=== PATIENT | female | born 1950 | race Hispanic/Latino ===

== ENCOUNTER 2016-11-08 18:14 | Emergency (ER) | payer MEDICARE ==
[2016-11-08 18:14] VITALS: BMI 27.6
[2016-11-08 18:35] VITALS: TEMP 98.9
[2016-11-08] MEDS ORDERED: Morphine 4 mg/ml ISec IM STA (18:39)
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
[2016-11-08] MEDS ORDERED: Lidocaine 1% Inj (20ml) IJ STA (19:10)
[2016-11-08 20:24] VITALS: BP 141/79; PULSE 65; RESP 20; O2SAT 99
--- NOTE | 2016-11-09 13:31 | RAD ---
PROCEDURE: Left Wrist Radiographs. HISTORY: post reduction COMPARISON: None. FINDINGS: BONES: Status post closed reduction previously noted comminuted intra-articular fracture distal left radius. Persistent angulation of the distal fragments. Surrounding soft tissue swelling. 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 IMPRESSION: Status post closed reduction previously noted comminuted intra-articular fracture distal left radius. Persistent angulation of the distal fragments. Surrounding soft tissue swelling. . See above discussion for additional details and findings.
--- NOTE | 2016-11-09 13:33 | RAD ---
PROCEDURE: Left Wrist Radiographs. HISTORY: lt. wrist pain s/p fall COMPARISON: None. FINDINGS: BONES: Comminuted intra-articular fracture distal left radius with palmar/volar angulation of the distal fragments. Surrounding soft tissue swelling. . 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 No dislocation. SOFT TISSUES: Normal. OTHER FINDINGS: None. IMPRESSION: Comminuted intra-articular fracture distal left radius with palmar/volar angulation of the distal fragments
== END 2016-11-08 20:55 | disposition home or self-care (01) ==
LOC: ED 18:14
DX: S52.572A Other intraarticular fracture of lower end of left radius, initial encounter for closed fracture (principal); V18.4XXA Pedal cycle driver injured in noncollision transport accident in traffic accident, initial encounter; Y93.55 Activity, bike riding; Y92.89 Other specified places as the place of occurrence of the external cause
CPT/HCPCS: 25605; 73110; 96372; 99284; J2270

== ENCOUNTER 2018-07-02 09:25 | Outpatient (CLI) | payer MEDICARE | END 2018-07-02 09:26 | disposition home or self-care (01) | LOC: LAB 09:25 ==